=== PATIENT | female | born 2005 | race Caucasian/White ===

== ENCOUNTER 2023-07-09 09:19 | Emergency (ER) | payer BC, OTHER ==
[2023-07-09 10:30] LABS: CORONAVIRUS COVID-19 NAA NEGATIVE (NEGATIVE); INFLUENZA A NAA NEGATIVE (NEGATIVE); INFLUENZA B NAA NEGATIVE (NEGATIVE); RESPIRATORY SYNCYTIAL VIR NAA NEGATIVE (NEGATIVE)
== END 2023-07-09 11:00 | disposition home or self-care (01) ==
LOC: DL.ED 09:19
DX: J06.9 Acute upper respiratory infection, unspecified (principal)
CPT/HCPCS: 0241U; 99283